=== PATIENT | male | born 1970 | race Caucasian/White ===

== ENCOUNTER 2017-03-01 08:54 | Inpatient (IN) | payer OTHER ==
[2017-03-01 09:25] LABS: EOS % 0.1 % (0-7); HCT-HEMATOCRIT 41.3 % (36.0-53.5); HGB-HEMOGLOBIN 14.6 gm/dl (13.5-17.0); IMMATURE GRANULOCYTES ABSOLUTE 0.06 tho/cmm (0-0.03); IMMATURE GRANULOCYTES PERCENT 0.3 % (0-0.3); LYMPH % 10.6 % (20-45); LYMPH ABSOLUTE COUNT 2.1 tho/cmm (0.8-4.5); MCH (MEAN CORPUSCULAR HGB) 30.6 pg (28.0-32.0); MCHC MEAN CORPUSCULAR HGB CONC 35.4 % (32.0-36.0); MCV (MEAN CELL VOLUME) 86.6 fl (82.0-96.0); MONO % 6.9 % (0-12); MONOCYTE ABSOLUTE COUNT 1.4 tho/cmm (0.0-1.2); NEUTROPHIL ABSOLUTE COUNT 16.6 tho/cmm (1.6-8.0); NEUTROPHIL-AUTOMATED 16.6 tho/cmm (1.6-8.0); NEUTROPHILS % 82.1 % (40-80); PLATELET COUNT 255 tho/cmm (150-450); RED BLOOD COUNT 4.77 mil/cmm (4.40-5.70); RED CELL DISTRIBUTION WIDTH 12.9 % (12.4-16.4); WHITE BLOOD COUNT 20.3 tho/cmm (4.0-10.0)
[2017-03-01 09:45] LABS: ALBUMIN 3.9 g/dl (3.5-5.0); ALKALINE PHOSPHATASE 64 U/L (33-138); ALT/SGPT 76 U/L (12-78); ANION GAP 14 mmol/L (0-20); AST/SGOT 25 U/L (10-40); BILIRUBIN,TOTAL 0.8 mg/dl (0.0-1.5); BLOOD UREA NITROGEN 15 mg/dl (6-24); CALCIUM 8.8 mg/dl (8.5-10.5); CARBON DIOXIDE-VENOUS 24 mmol/L (22-32); CHLORIDE 102 mmol/l (96-110); CREATININE 1.41 mg/dl (0.60-1.30); GLUCOSE 125 mg/dL (70-110); LIPASE 57 U/L (73-393); POTASSIUM 3.6 mmol/L (3.7-5.1); SODIUM 136 mmol/L (135-145); eGFR VALUE FOR BLACK 69 mL/Min
[2017-03-01] MEDS ORDERED: NO HOME MEDICATION XX (09:48)
[2017-03-01 09:59] LABS: PROCALCITONIN 0.59 ng/ml (0.05-0.09)
[2017-03-01 13:37] LABS: URINE APPEARANCE CLEAR; URINE BILIRUBIN NEGATIVE (NEG); URINE BLOOD SMALL (NEG); URINE COLOR YELLOW; URINE GLUCOSE (UA) NEGATIVE (NEG); URINE KETONE NEGATIVE (NEG); URINE LEUKOCYTE ESTERASE NEGATIVE (NEG); URINE NITRITE NEGATIVE (NEG); URINE PROTEIN SMALL (NEG); URINE SPECIFIC GRAVITY 1.015 (1.003-1.030)
[2017-03-01 13:45] LABS: URINE EPITHELIAL CELLS RARE /[HPF] (0-10); URINE RBC RARE /[HPF] (0-5); URINE WBC 0 /[HPF] (0-5)
--- NOTE | 2017-03-01 21:17 | NUR ---
VIRTUAL CARE NOTE: REVIEWED PLAN OF CARE WITH PT/. DISCUSSED VANCO TO TREAT TO CDIFF, PROBIOTICS, LIMIT USE OF ACID REDUCERS. TALKED ABOUT USING BLEACH TO CLEAN, STRICT HAND HYGIENE WITH SOAP AND WATER, NOT ALCOHOL BASED HAND SANITIZERS. BEING AROUND FAMILY WITH NORMAL GUT VERA AND IMMUNESYSTEMS SHOULD BE OK, JUST ENCOURAGED HAND WASHING. USING A SEPERATE BATHROOM FOR PT, NOT THE MAIN OTHER VISITORS MAY BE USING. AND USING BLEACH TO CLEAN ALL SURFACES. THEY ARE PLANNING ON SEEING HEALTHY FAMILY MEMBERS NEXT WEEKEND. ENCOURGAED THAT SHOULD BE OK SINCE PT WILL BE ON ABX FOR A WEEK BUT TO USE CAUTION SHOULD SOMEONE START ANTIBIOTICS IN THE MEANTIME. ALSO STATES SPORES ARE VERY RESISTANT AND CAN REMAIN ON SURFACES FOR EXTENDED PERIODS OF TIME. NOTED THAT ONE SHOULD SEEK MEDICAL ATTENTION IF THEY HAVE 3 UNFORMED STOOLS WITHIN 24 HOURS STATED IN [facility] [place] BUT AGAIN ENCOURAGED IT IS NOT COMMON FOR HEALTHY INDIVIDUALS WITH NORMAL GUT VERA TO HAVE CDIFF COLONIZE. AND PT V/U AND DENY ANY FURTHER QUESTIONS OR CONCERNS AT THIS TIME.
[2017-03-02 01:08] LABS: BASO % 0.1 % (0-2); EOS % 0.5 % (0-7); EOSINOPHIL ABSOLUTE COUNT 0.1 tho/cmm (0.0-0.7); HCT-HEMATOCRIT 36.5 % (36.0-53.5); HGB-HEMOGLOBIN 12.7 gm/dl (13.5-17.0); IMMATURE GRANULOCYTES ABSOLUTE 0.06 tho/cmm (0-0.03); IMMATURE GRANULOCYTES PERCENT 0.4 % (0-0.3); LYMPH ABSOLUTE COUNT 2.6 tho/cmm (0.8-4.5); MCH (MEAN CORPUSCULAR HGB) 30.6 pg (28.0-32.0); MCHC MEAN CORPUSCULAR HGB CONC 34.8 % (32.0-36.0); MEAN PLATELET VOLUME 8.8 cmc (9.4-12.4); MONO % 7.2 % (0-12); MONOCYTE ABSOLUTE COUNT 1.2 tho/cmm (0.0-1.2); NEUTROPHIL ABSOLUTE COUNT 12.5 tho/cmm (1.6-8.0); NEUTROPHIL-AUTOMATED 12.5 tho/cmm (1.6-8.0); NEUTROPHILS % 75.8 % (40-80); PLATELET COUNT 220 tho/cmm (150-450); RED BLOOD COUNT 4.15 mil/cmm (4.40-5.70); RED CELL DISTRIBUTION WIDTH 13.1 % (12.4-16.4); WHITE BLOOD COUNT 16.4 tho/cmm (4.0-10.0)
[2017-03-02 01:20] LABS: AMYLASE 11 U/L (20-90); ANION GAP 12 mmol/L (0-20); BLOOD UREA NITROGEN 11 mg/dl (6-24); CALCIUM 7.7 mg/dl (8.5-10.5); CARBON DIOXIDE-VENOUS 26 mmol/L (22-32); CHLORIDE 104 mmol/l (96-110); CREATININE 1.24 mg/dl (0.60-1.30); GLUCOSE 93 mg/dL (70-110); LIPASE 48 U/L (73-393); MAGNESIUM 1.9 mg/dl (1.8-2.6); POTASSIUM 3.4 mmol/L (3.7-5.1); SODIUM 139 mmol/L (135-145); eGFR VALUE FOR BLACK 80 mL/Min
[2017-03-02] MEDS ORDERED: VANCOCIN HCL125 MG PO (13:51)
[2017-03-02] MEDS ORDERED: CULTURELLE1 EAC1 PO (13:53)
== END 2017-03-02 14:35 | DRG 372 ==
LOC: EDMED 08:54 → EMR2 14:52 → 5WD 14:57
PROVIDERS: Emergency Medicine; ADMIT Family Medicine
DX: A04.7 Enterocolitis due to Clostridium difficile (principal); N17.9 Acute kidney failure, unspecified; D72.829 Elevated white blood cell count, unspecified; E87.6 Hypokalemia; E86.0 Dehydration
CPT/HCPCS: J1170; J2270; J2405; J2543; J3480; J7030; Q9967